=== PATIENT | male | born 1980 | race Caucasian/White ===

== ENCOUNTER 2019-05-26 02:09 | Emergency (ER) | payer OTHER ==
[~2019-05-26] VITALS: Ht 162.6 cm; Wt 80.3 kg
[2019-05-26 02:14] VITALS: Ht 162.6 cm; Wt 80.3 kg
[2019-05-26 03:23] LABS: BASOPHIL % 0.4 % (0-2); PLATELET COUNT 327 x10^3mcL (130-400); RED CELL DISTRIBUTION WIDTH 12.9 % (11.5-14.5)
[2019-05-26 03:37] LABS: CALCIUM 7.8 mg/dL (8.5-10.1); CARBON DIOXIDE 28.7 mmol/L (21-32); CHLORIDE SERUM 102 mmol/L (98-107); GFR1 > 60 mL/min; GLUCOSE SERUM 107 mg/dL (74-106); POTASSIUM SERUM 3.5 mmol/L (3.5-5.1); SODIUM SERUM 139 mmol/L (136-145)
[2019-05-26 03:41] LABS: ALKALINE PHOSPHATASE 98 U/L (46-116); ALT/SGPT 55 U/L (16-63); AST/SGOT 25 U/L (15-37); LIPASE 30 IU/L (73-393); TOTAL PROTEIN, SERUM 6.8 g/dL (6.4-8.2)
[2019-05-26 03:48] LABS: ALBUMIN 3.3 g/dL (3.4-5.0)
[2019-05-26 05:10] VITALS: BP 131/95
== END 2019-05-26 05:11 | disposition home or self-care (01) ==
LOC: ED 02:09
PROVIDERS: Emergency Medicine
DX: F10.239 Alcohol dependence with withdrawal, unspecified (principal); Y90.9 Presence of alcohol in blood, level not specified
CPT/HCPCS: J2405; J7030